=== PATIENT | male | born 1990 | race Two or more races ===

== ENCOUNTER 2019-03-23 09:35 | Emergency (ER) | payer MEDICAID ==
[~2019-03-23] VITALS: Ht 167.6 cm; Wt 56.2 kg
[2019-03-23 09:49] VITALS: BP 156/92
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
--- NOTE | 2019-03-23 09:51 | NUR ---
ED Nurse Note: pt walked in due to rash behind the left ear and on the scalp started more than 2 years ago. pt denies pain. pt stated he puts cream but unknown brand. seen by jazmyn. will continue to monitor.
[2019-03-23] MEDS ORDERED: KETOCONAZOLE120 ML TP (10:00)
[2019-03-23] MEDS ORDERED: METRONIDAZOLE45 G1 TOPIC (10:00)
[2019-03-23] MEDS ORDERED: NARCAN4 MG NS (10:00)
--- NOTE | 2019-03-23 10:08 | NUR ---
ER DISCHARGE NOTE: Patient is cleared to be discharged per ERMD, pt is aox4, on room air, with stable vital signs. pt was given dc and prescription instructions, pt was able to verbalize understanding, pt id band removed without complications. pt is able to ambulate with steady gait. pt took all belongings.
== END 2019-03-23 10:10 | disposition home or self-care (01) ==
LOC: EMR 10:09
DX: B35.0 Tinea barbae and tinea capitis (principal); L21.9 Seborrheic dermatitis, unspecified; Z91.5 Personal history of self-harm
CPT/HCPCS: 99282